=== PATIENT | female | born 1990 | race Caucasian/White ===

== ENCOUNTER 2021-11-16 09:56 | Inpatient (IN) | payer MEDICAID ==
[~2021-11-16] VITALS: Ht 162.6 cm; Wt 68.2 kg
[2021-11-16] MEDS ORDERED: SODIUM CHLORIDE 0.9% 1,000 ML IV ONE ×3 (11:00→14:00)
[2021-11-16 11:23] LABS: BASOPHILS % (AUTO) 0.1 % (0.0-2.0); HEMATOCRIT 42.5 % (36-46); HEMOGLOBIN 14.2 g/dL (12.0-16.0); LYMPHOCYTES # (AUTO) 0.7 K/uL (1.0-4.8); LYMPHOCYTES % (AUTO) 3.9 % (22.0-44.0); MEAN CORPUSCULAR HEMOGLOBIN 31.1 pg (26.0-34.0); MEAN CORPUSCULAR HGB CONC 33.5 G/dL (31.0-37.0); MEAN CORPUSCULAR VOLUME 93 fL (80-100); MONOCYTES # (AUTO) 2.5 K/uL (0.1-1.0); MONOCYTES % (AUTO) 14.5 % (2.0-9.0); NEUTROPHILS # (AUTO) 13.9 K/uL (1.8-7.7); NEUTROPHILS % (AUTO) 80.5 % (40.0-70.0); PLATELET COUNT (AUTO) 453 K/uL (150-450); RED BLOOD CELL COUNT(AUTO) 4.58 MIL/uL (4.00-5.20); RED CELL DISTRIBUTION WIDTH 13.4 % (11.5-14.5)
[2021-11-16 11:39] LABS: ANION GAP 8 mmol/L (8-16); CALCIUM, TOTAL 8.5 mg/dL (8.8-10.5); CARBON DIOXIDE 22 mmol/L (22-29); CHLORIDE 106 mmol/L (98-107); CREATININE 0.65 mg/dL (0.60-1.30); GLOMERULAR FILTR. RATE CALC > 60 mL/min (>60); GLUCOSE,RANDOM 86 mg/dL (70-110); POTASSIUM 4.1 mmol/L (3.5-5.1); SODIUM SERUM 136 mmol/L (136-145); UREA NITROGEN, BLOOD 22 mg/dL (7-18)
[2021-11-16 11:42] LABS: ALANINE AMINOTRANSFERASE 23 U/L (12-78); ALKALINE PHOSPHATASE 101 U/L (46-116); ASPARTATE AMINOTRANSFERASE 15 U/L (15-37); BILIRUBIN,TOTAL 0.5 mg/dL (0.1-1.0); LIPASE 36 U/L (73-393); TOTAL PROTEIN, SERUM 8.1 g/dL (6.4-8.2)
[2021-11-16] MEDS ORDERED: SODIUM CHLORIDE 0.9% 100 ML ONE (12:59)
[2021-11-16] MEDS ORDERED: IOHEXOL 350 MG/ML 100 ML VIAL ONE (12:59)
[2021-11-16] MEDS ORDERED: CefTRIAXone 1 GM/DEXTROSE 50 ML IV ONE (13:00)
[2021-11-16] MEDS ORDERED: MetroNIDAZOLE 250 MG TABLET PO ONE (13:00)
[2021-11-16] MEDS ORDERED: MORPHINE SULFATE 2 MG/ML SYRINGE IVP PRN (14:00)
[2021-11-16] MEDS ORDERED: ZOLPIDEM TARTRATE 5 MG TABLET PO PRN (14:00)
[2021-11-16] MEDS ORDERED: ACETAMINOPHEN 325 MG TABLET PO PRN (14:00)
[2021-11-16] MEDS ORDERED: MAGNESIUM HYDROXIDE SUSPENSION 30 ML UDCUP PO PRN (14:00)
[2021-11-16] MEDS ORDERED: ONDANSETRON HCL 4 MG/2 ML VIAL IVP PRN (14:00)
[2021-11-16] MEDS ORDERED: BISACODYL 10 MG RECTAL RECTAL SUPPOSITORY PR PRN (14:00)
[2021-11-16] MEDS ORDERED: HYDROCODONE/ACETAMINOPHEN 5-325 MG TABLET PO PRN (14:00)
[2021-11-16 14:21] LABS: COVID AG,FIA SOURCE NASAL SWAB
[2021-11-16] MEDS: HEPARIN SODIUM,PORCINE 5,000 UNITS/ML VIAL SQ SCH (16:00)
[2021-11-16 16:19] VITALS: BP 125/76
[2021-11-16] MEDS ORDERED: INFLUENZA VIRUS VACCINE QVS 2021-22 (6MO+)/PF 60 MCG/0.5 ML SYRINGE IM. ONE (16:30)
[2021-11-16] MEDS: DOCUSATE SODIUM 100 MG CAPSULE PO SCH (21:00)
[2021-11-17 05:37] VITALS: BP 120/70
[2021-11-17 06:47] LABS: HEMATOCRIT 36.9 % (36-46); HEMOGLOBIN 12.4 g/dL (12.0-16.0); MEAN CORPUSCULAR HEMOGLOBIN 31.6 pg (26.0-34.0); MEAN CORPUSCULAR HGB CONC 33.5 G/dL (31.0-37.0); MEAN CORPUSCULAR VOLUME 94 fL (80-100); PLATELET COUNT (AUTO) 420 K/uL (150-450); RED BLOOD CELL COUNT(AUTO) 3.91 MIL/uL (4.00-5.20); RED CELL DISTRIBUTION WIDTH 13.1 % (11.5-14.5)
[2021-11-17 06:52] LABS: ANION GAP 8 mmol/L (8-16); CALCIUM, TOTAL 8.3 mg/dL (8.8-10.5); CARBON DIOXIDE 26 mmol/L (22-29); CHLORIDE 107 mmol/L (98-107); CREATININE 0.64 mg/dL (0.60-1.30); GLOMERULAR FILTR. RATE CALC > 60 mL/min (>60); GLUCOSE,RANDOM 77 mg/dL (70-110); POTASSIUM 3.6 mmol/L (3.5-5.1); SODIUM SERUM 141 mmol/L (136-145); UREA NITROGEN, BLOOD 12 mg/dL (7-18)
[2021-11-17 07:57] VITALS: BP 112/71
[2021-11-17] MEDS: HEPARIN SODIUM,PORCINE 5,000 UNITS/ML VIAL SQ SCH ×2 (08:00)
[2021-11-17 08:16] LABS: BAND NEUTROPHILS % (MANUAL) 1 % (0-5); LYMPHOCYTES % (MANUAL) 25 % (22-44); MONOCYTES % (MANUAL) 13 % (2-9); SEGMENTED NEUTROPHILS % 61 % (40-70)
[2021-11-17] MEDS ORDERED: PANTOPRAZOLE SODIUM 40 MG DR TABLET PO SCH (09:00)
[2021-11-17] MEDS: DOCUSATE SODIUM 100 MG CAPSULE PO SCH (09:00)
[2021-11-17] MEDS ORDERED: BISA10SU11 PR (15:15)
[2021-11-17] MEDS ORDERED: DOCU-270 PO (15:15)
== END 2021-11-17 13:20 | disposition left against medical advice (07) | DRG 247 ==
LOC: EMS 10:01 → UNDOADMIN 13:32 → 3EI 13:32 → 6S 14:27 → 3EI 15:16 → 6N 11-17 06:00
PROVIDERS: ADMIT Internal Medicine; ATTEND Internal Medicine
DX: K56.7 Ileus, unspecified (principal); R65.10 Systemic inflammatory response syndrome (SIRS) of non-infectious origin without acute organ dysfunction; F29 Unspecified psychosis not due to a substance or known physiological condition; F12.10 Cannabis abuse, uncomplicated; Z20.822 Contact with and (suspected) exposure to COVID-19; Z53.29 Procedure and treatment not carried out because of patient's decision for other reasons; E86.0 Dehydration; R79.89 Other specified abnormal findings of blood chemistry; Z28.21 Immunization not carried out because of patient refusal
CPT/HCPCS: 74019; 74177; 80048; 80053; 83690; 84703; 85025; 99285; J0696; J1644; J7030; J7050; Q9967

== ENCOUNTER 2021-11-19 12:42 | Emergency (ER) | payer MEDICAID ==
[~2021-11-19] VITALS: Ht 162.6 cm; Wt 60.0 kg
[~2021-11-19 12:42] MED LIST: BISA10SU11 PR; DOCU-270 PO
[2021-11-19 13:21] LABS: BASOPHILS % (AUTO) 0.3 % (0.0-2.0); EOSINOPHILS % (AUTO) 3.9 % (1.0-6.0); HEMATOCRIT 35.1 % (36-46); LYMPHOCYTES # (AUTO) 1.6 K/uL (1.0-4.8); MEAN CORPUSCULAR HEMOGLOBIN 31.8 pg (26.0-34.0); MEAN CORPUSCULAR HGB CONC 34.2 G/dL (31.0-37.0); MEAN CORPUSCULAR VOLUME 93 fL (80-100); MONOCYTES # (AUTO) 1.5 K/uL (0.1-1.0); MONOCYTES % (AUTO) 18.8 % (2.0-9.0); NEUTROPHILS # (AUTO) 4.3 K/uL (1.8-7.7); PLATELET COUNT (AUTO) 411 K/uL (150-450); RED BLOOD CELL COUNT(AUTO) 3.78 MIL/uL (4.00-5.20); RED CELL DISTRIBUTION WIDTH 12.9 % (11.5-14.5)
[2021-11-19 13:44] LABS: ANION GAP 8 mmol/L (8-16); CARBON DIOXIDE 29 mmol/L (22-29); CHLORIDE 106 mmol/L (98-107); CREATININE 0.67 mg/dL (0.60-1.30); GLUCOSE,RANDOM 81 mg/dL (70-110); POTASSIUM 3.5 mmol/L (3.5-5.1); SODIUM SERUM 143 mmol/L (136-145); UREA NITROGEN, BLOOD 11 mg/dL (7-18)
[2021-11-19 13:45] LABS: CALCIUM, TOTAL 8.5 mg/dL (8.8-10.5); GLOMERULAR FILTR. RATE CALC > 60 mL/min (>60)
[2021-11-19 13:58] LABS: ALANINE AMINOTRANSFERASE 15 U/L (12-78); ALBUMIN 3.3 g/dL (3.4-5.0); ALKALINE PHOSPHATASE 88 U/L (46-116); ASPARTATE AMINOTRANSFERASE 13 U/L (15-37); BILIRUBIN,TOTAL 0.4 mg/dL (0.1-1.0); HCG,QUANTITATIVE < 1 mIU/mL (0-6); TOTAL PROTEIN, SERUM 6.7 g/dL (6.4-8.2)
[2021-11-19 15:27] VITALS: BP 125/71
== END 2021-11-19 16:00 | disposition home or self-care (01) ==
LOC: EMS 12:44
DX: T73.0XXA Starvation, initial encounter (principal); F41.9 Anxiety disorder, unspecified; F32.9 Major depressive disorder, single episode, unspecified; K21.9 Gastro-esophageal reflux disease without esophagitis; F12.90 Cannabis use, unspecified, uncomplicated; F19.90 Other psychoactive substance use, unspecified, uncomplicated; F17.210 Nicotine dependence, cigarettes, uncomplicated; Z59.00 Homelessness unspecified; X58.XXXA Exposure to other specified factors, initial encounter
CPT/HCPCS: 36415; 80053; 84702; 85025; 99285; G0480

== ENCOUNTER 2021-12-02 08:13 | Inpatient (IN) | payer MEDICAID ==
[~2021-12-02] VITALS: Ht 162.6 cm; Wt 67.1 kg
[~2021-12-02 08:13] MED LIST changes: -DOCU-270 PO; +DOCU-385 PO
[2021-12-02 09:39] LABS: HEMATOCRIT 36.8 % (36-46)
[2021-12-02 09:43] LABS: BASOPHILS % (AUTO) 0.6 % (0.0-2.0); EOSINOPHILS % (AUTO) 2.4 % (1.0-6.0); HEMOGLOBIN 12.4 g/dL (12.0-16.0); LYMPHOCYTES # (AUTO) 1.7 K/uL (1.0-4.8); LYMPHOCYTES % (AUTO) 24.6 % (22.0-44.0); MEAN CORPUSCULAR HEMOGLOBIN 31.5 pg (26.0-34.0); MEAN CORPUSCULAR HGB CONC 33.7 G/dL (31.0-37.0); MEAN CORPUSCULAR VOLUME 94 fL (80-100); MONOCYTES # (AUTO) 1.3 K/uL (0.1-1.0); MONOCYTES % (AUTO) 19.4 % (2.0-9.0); NEUTROPHILS # (AUTO) 3.7 K/uL (1.8-7.7); PLATELET COUNT (AUTO) 460 K/uL (150-450); RED BLOOD CELL COUNT(AUTO) 3.94 MIL/uL (4.00-5.20); RED CELL DISTRIBUTION WIDTH 13.3 % (11.5-14.5)
[2021-12-02 09:48] LABS: ANION GAP 6 mmol/L (8-16); CALCIUM, TOTAL 8.5 mg/dL (8.8-10.5); CARBON DIOXIDE 29 mmol/L (22-29); CHLORIDE 104 mmol/L (98-107); GLOMERULAR FILTR. RATE CALC > 60 mL/min (>60); GLUCOSE,RANDOM 81 mg/dL (70-110); POTASSIUM 3.5 mmol/L (3.5-5.1); SODIUM SERUM 139 mmol/L (136-145); UREA NITROGEN, BLOOD 17 mg/dL (7-18)
[2021-12-02 09:59] LABS: ALANINE AMINOTRANSFERASE 25 U/L (12-78); ALBUMIN 3.6 g/dL (3.4-5.0); ALKALINE PHOSPHATASE 101 U/L (46-116); ASPARTATE AMINOTRANSFERASE 17 U/L (15-37); BILIRUBIN,TOTAL 0.3 mg/dL (0.1-1.0); HCG,QUANTITATIVE < 1 mIU/mL (0-6); TOTAL PROTEIN, SERUM 6.9 g/dL (6.4-8.2)
[2021-12-02 10:25] LABS: COVID AG,FIA SOURCE NASAL SWAB
[2021-12-02 10:43] LABS: AMPHET/METH SCREEN,URINE POSITIVE (NEGATIVE); BARBITURATE SCREEN, URINE NEGATIVE (NEGATIVE); BENZODIAZEPINES SCREEN,URINE NEGATIVE (NEGATIVE); CANNABINOID SCREEN,URINE NEGATIVE (NEGATIVE); COCAINE SCREEN,URINE NEGATIVE (NEGATIVE); METHADONE SCREEN, URINE NEGATIVE (NEGATIVE); OPIATE SCREEN,URINE NEGATIVE (NEGATIVE)
[2021-12-02 10:47] LABS: PHENCYCLIDINE SCREEN,URINE NEGATIVE (NEGATIVE)
[2021-12-02] MEDS ORDERED: NICOTINE 14 MG/24 HOUR PATCH TD PRN (13:45)
[2021-12-02] MEDS ORDERED: DOCUSATE SODIUM 100 MG CAPSULE PO PRN (13:45)
[2021-12-02] MEDS ORDERED: CloNIDine HCL 0.1 MG TABLET PO PRN (13:45)
[2021-12-02] MEDS ORDERED: PETROLATUM,WHITE 28 GM JELLY TP PRN (13:45)
[2021-12-02] MEDS ORDERED: ONDANSETRON HCL 4 MG TABLET PO PRN (13:45)
[2021-12-02] MEDS ORDERED: ACETAMINOPHEN 325 MG TABLET PO PRN (13:45)
[2021-12-02] MEDS ORDERED: ALBUTEROL SULFATE HFA 90 MCG/PUFF 8 GM INHALER IH PRN (13:45)
[2021-12-02] MEDS ORDERED: LOPERAMIDE HCL 2 MG CAPSULE PO PRN (13:45)
[2021-12-02] MEDS ORDERED: MAGNESIUM HYDROXIDE SUSPENSION 30 ML UDCUP PO PRN (13:45)
[2021-12-02] MEDS ORDERED: MAG HYDROX/AL HYDROX/SIMETH ES 30 ML SUSPENSION UDCUP PO PRN (13:45)
[2021-12-02] MEDS ORDERED: GuaiFENesin/D-METHORPHAN [SUGAR-FREE] 200-20MG/10 ML SYRUP UDCUP PO PRN (13:45)
[2021-12-02] MEDS ORDERED: IBUPROFEN 400 MG TABLET PO PRN (13:45)
[2021-12-02] MEDS: DOCUSATE SODIUM 100 MG CAPSULE PO SCH (16:55)
[2021-12-02] MEDS: OMEPRAZOLE 20 MG CAPSULE PO SCH (19:03)
[2021-12-02] MEDS: NICOTINE 14 MG/24 HOUR PATCH TD SCH (19:04)
[2021-12-02] MEDS: ZOLPIDEM TARTRATE 10 MG TABLET PO PRN (22:50)
[2021-12-03] MEDS: LORazepam 2 MG TABLET PO PRN (00:32)
[2021-12-03 01:02] VITALS: BP 125/81
[2021-12-03 08:00] VITALS: BP 121/88
[2021-12-03] MEDS: OMEPRAZOLE 20 MG CAPSULE PO SCH (08:18)
[2021-12-03] MEDS: DOCUSATE SODIUM 100 MG CAPSULE PO SCH ×2 (08:18→16:23)
[2021-12-03] MEDS: NICOTINE 14 MG/24 HOUR PATCH TD SCH (08:18)
[2021-12-03] MEDS: RisperiDONE 0.5 MG TABLET PO SCH (16:23)
[2021-12-03] MEDS: ZOLPIDEM TARTRATE 10 MG TABLET PO PRN (21:49)
[2021-12-04] MEDS: LORazepam 2 MG TABLET PO PRN ×2 (01:40→16:11)
[2021-12-04 01:41] VITALS: BP 105/60
[2021-12-04 08:21] VITALS: BP 107/78
[2021-12-04] MEDS: OMEPRAZOLE 20 MG CAPSULE PO SCH (09:00)
[2021-12-04] MEDS: RisperiDONE 0.5 MG TABLET PO SCH ×2 (09:00→16:35)
[2021-12-04] MEDS: DOCUSATE SODIUM 100 MG CAPSULE PO SCH ×2 (09:00→16:35)
[2021-12-04] MEDS: NICOTINE 14 MG/24 HOUR PATCH TD SCH (09:00)
[2021-12-04 16:21] VITALS: BP 119/78
[2021-12-04] MEDS: HALOPERIDOL 5 MG TABLET PO PRN (18:55)
[2021-12-04] MEDS: ZOLPIDEM TARTRATE 10 MG TABLET PO PRN (21:31)
[2021-12-05] MEDS: LORazepam 2 MG TABLET PO PRN ×3 (00:09→16:57)
[2021-12-05 01:10] VITALS: BP 114/78
[2021-12-05] MEDS: DOCUSATE SODIUM 100 MG CAPSULE PO SCH ×2 (08:39→16:17)
[2021-12-05] MEDS: NICOTINE 14 MG/24 HOUR PATCH TD SCH (08:40)
[2021-12-05] MEDS: OMEPRAZOLE 20 MG CAPSULE PO SCH (08:40)
[2021-12-05] MEDS: RisperiDONE 0.5 MG TABLET PO SCH ×2 (08:41→16:17)
[2021-12-05 08:47] VITALS: BP 110/68
[2021-12-05 16:07] VITALS: BP 112/70
[2021-12-06 00:36] VITALS: BP 114/69
[2021-12-06] MEDS: ZOLPIDEM TARTRATE 10 MG TABLET PO PRN ×2 (02:07→20:39)
[2021-12-06] MEDS: HALOPERIDOL 5 MG TABLET PO PRN (03:02)
[2021-12-06] MEDS: LORazepam 2 MG TABLET PO PRN ×2 (03:02→14:54)
[2021-12-06 08:48] VITALS: BP 112/69
[2021-12-06] MEDS: RisperiDONE 0.5 MG TABLET PO SCH ×2 (09:03→16:05)
[2021-12-06] MEDS: OMEPRAZOLE 20 MG CAPSULE PO SCH (09:03)
[2021-12-06] MEDS: NICOTINE 14 MG/24 HOUR PATCH TD SCH (09:03)
[2021-12-06] MEDS: DOCUSATE SODIUM 100 MG CAPSULE PO SCH ×2 (09:03→16:05)
[2021-12-06 16:04] VITALS: BP 108/97
[2021-12-07 00:07] VITALS: BP 107/69
[2021-12-07 02:13] VITALS: BP 110/70
[2021-12-07] MEDS: LORazepam 2 MG TABLET PO PRN ×3 (02:19→17:53)
[2021-12-07] MEDS: HALOPERIDOL 5 MG TABLET PO PRN (02:19)
[2021-12-07] MEDS: RisperiDONE 0.5 MG TABLET PO SCH ×2 (08:11→16:19)
[2021-12-07] MEDS: DOCUSATE SODIUM 100 MG CAPSULE PO SCH ×2 (08:11→16:19)
[2021-12-07] MEDS: OMEPRAZOLE 20 MG CAPSULE PO SCH (08:11)
[2021-12-07] MEDS: NICOTINE 14 MG/24 HOUR PATCH TD SCH (08:11)
[2021-12-07 08:13] VITALS: BP 116/72
[2021-12-07 08:16] LABS: GLUCOMETER DEV NAME(LOC) POC.BV
[2021-12-07] MEDS: ZOLPIDEM TARTRATE 10 MG TABLET PO PRN (21:17)
[2021-12-08 03:26] VITALS: BP 115/69
[2021-12-08] MEDS: HALOPERIDOL 5 MG TABLET PO PRN (03:35)
[2021-12-08] MEDS: LORazepam 2 MG TABLET PO PRN ×3 (03:35→22:56)
[2021-12-08 08:09] VITALS: BP 112/69
[2021-12-08] MEDS: RisperiDONE 0.5 MG TABLET PO SCH ×2 (08:25→16:06)
[2021-12-08] MEDS: OMEPRAZOLE 20 MG CAPSULE PO SCH (08:25)
[2021-12-08] MEDS: NICOTINE 14 MG/24 HOUR PATCH TD SCH (08:25)
[2021-12-08] MEDS: DOCUSATE SODIUM 100 MG CAPSULE PO SCH ×2 (08:25→16:06)
[2021-12-08 16:26] VITALS: BP 115/75
[2021-12-08] MEDS: ZOLPIDEM TARTRATE 10 MG TABLET PO PRN (20:06)
[2021-12-09 06:10] VITALS: BP 109/71
[2021-12-09] MEDS: LORazepam 2 MG TABLET PO PRN ×2 (07:59→16:23)
[2021-12-09] MEDS: DOCUSATE SODIUM 100 MG CAPSULE PO SCH ×2 (07:59→16:23)
[2021-12-09] MEDS: RisperiDONE 0.5 MG TABLET PO SCH ×2 (07:59→16:23)
[2021-12-09] MEDS: NICOTINE 14 MG/24 HOUR PATCH TD SCH (07:59)
[2021-12-09] MEDS: OMEPRAZOLE 20 MG CAPSULE PO SCH (07:59)
[2021-12-09 08:45] VITALS: BP 104/72
[2021-12-09 12:39] VITALS: BP 110/70
[2021-12-09] MEDS: TraMADol HCL 50 MG TABLET PO PRN (12:39)
[2021-12-09] MEDS: HALOPERIDOL 5 MG TABLET PO PRN (14:00)
[2021-12-09 16:30] VITALS: BP 111/76
[2021-12-09 17:17] VITALS: BP 114/68
[2021-12-09] MEDS: ZOLPIDEM TARTRATE 10 MG TABLET PO PRN (22:40)
[2021-12-10 00:26] VITALS: BP 109/66
[2021-12-10 02:10] VITALS: BP 115/76
[2021-12-10] MEDS: OMEPRAZOLE 20 MG CAPSULE PO SCH (08:07)
[2021-12-10] MEDS: RisperiDONE 0.5 MG TABLET PO SCH ×2 (08:07→16:13)
[2021-12-10] MEDS: DOCUSATE SODIUM 100 MG CAPSULE PO SCH ×2 (08:07→16:13)
[2021-12-10 08:20] VITALS: BP 114/70
[2021-12-10] MEDS ORDERED: DiphenhydrAMINE HCL 50 MG/ML VIAL ONE (10:29)
[2021-12-10] MEDS ORDERED: LORazepam 2 MG/ML VIAL ONE (10:29)
[2021-12-10] MEDS ORDERED: HALOPERIDOL LACTATE 5 MG/ML VIAL ONE (10:29)
[2021-12-10] MEDS ORDERED: LORazepam 2 MG/ML VIAL IM ONE (10:30)
[2021-12-10] MEDS ORDERED: DiphenhydrAMINE HCL 50 MG/ML VIAL IM ONE (10:30)
[2021-12-10] MEDS ORDERED: HALOPERIDOL LACTATE 5 MG/ML VIAL IM ONE (10:30)
[2021-12-10] MEDS: NICOTINE 14 MG/24 HOUR PATCH TD SCH (10:43)
[2021-12-10] MEDS: HALOPERIDOL 5 MG TABLET PO PRN (16:19)
[2021-12-10 16:25] VITALS: BP 106/70
[2021-12-10] MEDS: LORazepam 2 MG TABLET PO PRN (21:11)
[2021-12-11 07:05] VITALS: BP 105/68
[2021-12-11] MEDS: RisperiDONE 0.5 MG TABLET PO SCH ×2 (08:24→17:02)
[2021-12-11] MEDS: LORazepam 2 MG TABLET PO PRN ×2 (08:24→12:28)
[2021-12-11] MEDS: DOCUSATE SODIUM 100 MG CAPSULE PO SCH ×4 (08:24→17:26)
[2021-12-11] MEDS: OMEPRAZOLE 20 MG CAPSULE PO SCH ×2 (08:24→17:34)
[2021-12-11] MEDS: NICOTINE 14 MG/24 HOUR PATCH TD SCH (08:25)
[2021-12-11] MEDS: TraMADol HCL 50 MG TABLET PO PRN (12:28)
[2021-12-11] MEDS: HALOPERIDOL 5 MG TABLET PO PRN (12:28)
[2021-12-11 17:02] VITALS: BP 114/80
[2021-12-11] MEDS: ZOLPIDEM TARTRATE 10 MG TABLET PO PRN (22:34)
[2021-12-12 01:23] VITALS: BP 109/62
[2021-12-12 07:20] LABS: FREE T4 (FREE THYROXINE) 0.82 ng/dL (0.76-1.46); THYROID STIMULATING HORMONE 2.98 uIU/mL (0.36-3.74)
[2021-12-12 08:09] VITALS: BP 118/72
[2021-12-12] MEDS: LORazepam 2 MG TABLET PO PRN ×3 (08:13→23:28)
[2021-12-12] MEDS: NICOTINE 14 MG/24 HOUR PATCH TD SCH (08:13)
[2021-12-12] MEDS: RisperiDONE 0.5 MG TABLET PO SCH ×2 (08:13→16:43)
[2021-12-12] MEDS ORDERED: LORazepam 2 MG/ML VIAL ONE (11:01)
[2021-12-12] MEDS ORDERED: HALOPERIDOL LACTATE 5 MG/ML VIAL ONE (11:02)
[2021-12-12] MEDS ORDERED: DiphenhydrAMINE HCL 50 MG/ML VIAL ONE (11:03)
[2021-12-12] MEDS ORDERED: DiphenhydrAMINE HCL 50 MG/ML VIAL IM ONE (11:30)
[2021-12-12] MEDS ORDERED: LORazepam 2 MG/ML VIAL IM ONE (11:30)
[2021-12-12] MEDS ORDERED: HALOPERIDOL LACTATE 5 MG/ML VIAL IM ONE (11:30)
[2021-12-12] MEDS: DOCUSATE SODIUM 100 MG CAPSULE PO SCH (16:43)
[2021-12-12 17:45] VITALS: BP 99/63
[2021-12-12] MEDS: ZOLPIDEM TARTRATE 10 MG TABLET PO PRN (23:28)
[2021-12-13 06:35] VITALS: BP 105/98
[2021-12-13 08:10] LABS: CHOL/HDL RATIO 3.4 (3.9-5.7)
[2021-12-13 08:11] VITALS: BP 110/72
[2021-12-13] MEDS: NICOTINE 14 MG/24 HOUR PATCH TD SCH (08:14)
[2021-12-13] MEDS: DOCUSATE SODIUM 100 MG CAPSULE PO SCH ×2 (08:15→16:20)
[2021-12-13] MEDS: RisperiDONE 0.5 MG TABLET PO SCH ×2 (08:15→16:20)
[2021-12-13] MEDS: LORazepam 2 MG TABLET PO PRN ×2 (08:15→16:20)
[2021-12-13] MEDS: OMEPRAZOLE 20 MG CAPSULE PO SCH (08:15)
[2021-12-13] MEDS: TraMADol HCL 50 MG TABLET PO PRN (08:16)
[2021-12-13] MEDS: HALOPERIDOL 5 MG TABLET PO PRN (12:14)
[2021-12-13 16:16] VITALS: BP 105/65
[2021-12-13] MEDS: ZOLPIDEM TARTRATE 10 MG TABLET PO PRN (20:23)
[2021-12-14 08:11] LABS: GLUCOMETER DEV NAME(LOC) POC.BV
[2021-12-14 08:14] VITALS: BP 128/67
[2021-12-14] MEDS: OMEPRAZOLE 20 MG CAPSULE PO SCH (08:29)
[2021-12-14] MEDS: RisperiDONE 0.5 MG TABLET PO SCH (08:29)
[2021-12-14] MEDS: DOCUSATE SODIUM 100 MG CAPSULE PO SCH ×2 (08:29→16:00)
[2021-12-14] MEDS: LORazepam 2 MG TABLET PO PRN ×3 (08:30→20:44)
[2021-12-14] MEDS: NICOTINE POLACRILEX 2 MG LOZENGE PO PRN ×2 (08:35→17:12)
[2021-12-14] MEDS: HALOPERIDOL 5 MG TABLET PO PRN ×2 (09:22→14:28)
[2021-12-14] MEDS: RisperiDONE 1 MG TABLET PO SCH (16:00)
[2021-12-14 16:15] VITALS: BP 106/65
[2021-12-14] MEDS: ZOLPIDEM TARTRATE 10 MG TABLET PO PRN (20:44)
[2021-12-15 06:36] VITALS: BP 107/69
[2021-12-15 08:15] VITALS: BP 107/65
[2021-12-15] MEDS: OMEPRAZOLE 20 MG CAPSULE PO SCH (08:21)
[2021-12-15] MEDS: DOCUSATE SODIUM 100 MG CAPSULE PO SCH ×2 (08:23→17:17)
[2021-12-15] MEDS: LORazepam 2 MG TABLET PO PRN (08:24)
[2021-12-15] MEDS: RisperiDONE 1 MG TABLET PO SCH ×2 (08:24→17:17)
[2021-12-15] MEDS: NICOTINE POLACRILEX 2 MG LOZENGE PO PRN (08:37)
[2021-12-15] MEDS: HALOPERIDOL 5 MG TABLET PO PRN (13:42)
[2021-12-15] MEDS ORDERED: HALOPERIDOL LACTATE 5 MG/ML VIAL IM ONE (15:30)
[2021-12-15] MEDS ORDERED: LORazepam 2 MG/ML VIAL IM ONE (15:30)
[2021-12-15] MEDS ORDERED: DiphenhydrAMINE HCL 50 MG/ML VIAL IM ONE (15:30)
[2021-12-15 16:09] VITALS: BP 106/60
[2021-12-15] MEDS: ZOLPIDEM TARTRATE 10 MG TABLET PO PRN (21:53)
[2021-12-16 05:49] VITALS: BP 106/65
[2021-12-16] MEDS: OMEPRAZOLE 20 MG CAPSULE PO SCH (08:40)
[2021-12-16] MEDS: RisperiDONE 1 MG TABLET PO SCH ×2 (08:40→16:01)
[2021-12-16] MEDS: HALOPERIDOL 5 MG TABLET PO PRN ×2 (08:40→14:34)
[2021-12-16] MEDS: LORazepam 2 MG TABLET PO PRN ×2 (08:40→14:33)
[2021-12-16] MEDS: NICOTINE POLACRILEX 2 MG LOZENGE PO PRN (08:50)
[2021-12-16] MEDS: DOCUSATE SODIUM 100 MG CAPSULE PO SCH ×2 (09:00→16:01)
[2021-12-16 16:07] VITALS: BP 106/74
[2021-12-17 00:24] VITALS: BP 110/64
[2021-12-17] MEDS: NICOTINE POLACRILEX 2 MG LOZENGE PO PRN (06:26)
[2021-12-17] MEDS: RisperiDONE 1 MG TABLET PO SCH ×2 (08:36→16:16)
[2021-12-17] MEDS: LORazepam 2 MG TABLET PO PRN ×2 (08:37→13:21)
[2021-12-17] MEDS: DOCUSATE SODIUM 100 MG CAPSULE PO SCH ×2 (08:37→16:16)
[2021-12-17] MEDS: OMEPRAZOLE 20 MG CAPSULE PO SCH (08:37)
[2021-12-17 09:02] VITALS: BP 104/70
[2021-12-17] MEDS: NICOTINE 14 MG/24 HOUR PATCH TD SCH (12:50)
[2021-12-17] MEDS: HALOPERIDOL 5 MG TABLET PO PRN (12:50)
[2021-12-17 17:15] VITALS: BP 121/75
[2021-12-17] MEDS: ZOLPIDEM TARTRATE 10 MG TABLET PO PRN (21:59)
[2021-12-18 06:03] VITALS: BP 116/72
[2021-12-18] MEDS: NICOTINE 14 MG/24 HOUR PATCH TD SCH (08:18)
[2021-12-18] MEDS: OMEPRAZOLE 20 MG CAPSULE PO SCH (08:18)
[2021-12-18] MEDS: RisperiDONE 1 MG TABLET PO SCH (08:18)
[2021-12-18] MEDS: DOCUSATE SODIUM 100 MG CAPSULE PO SCH (08:19)
[2021-12-18 08:28] VITALS: BP 120/74
[2021-12-18] MEDS ORDERED: RISP1TAB98 PO (09:05)
[2021-12-18] MEDS ORDERED: RISP1TAB48 PO (09:10)
== END 2021-12-18 14:45 | disposition home or self-care (01) | DRG 751 ==
LOC: EMS 08:17 → B2S 11:23 → B3A 12-07 22:42
PROVIDERS: ADMIT Psychiatry & Neurology Child & Adolescent Psychiatry; ATTEND Psychiatry & Neurology Child & Adolescent Psychiatry
DX: F33.3 Major depressive disorder, recurrent, severe with psychotic symptoms (principal); R45.851 Suicidal ideations; D75.839 Thrombocytosis, unspecified; F10.10 Alcohol abuse, uncomplicated; F15.10 Other stimulant abuse, uncomplicated; F17.200 Nicotine dependence, unspecified, uncomplicated; F41.0 Panic disorder [episodic paroxysmal anxiety]; K21.9 Gastro-esophageal reflux disease without esophagitis; F41.9 Anxiety disorder, unspecified; Y90.9 Presence of alcohol in blood, level not specified; F12.10 Cannabis abuse, uncomplicated; Z20.822 Contact with and (suspected) exposure to COVID-19; Z71.41 Alcohol abuse counseling and surveillance of alcoholic; Z59.00 Homelessness unspecified; Z71.51 Drug abuse counseling and surveillance of drug abuser
CPT/HCPCS: 72040; 80053; 80061; 84439; 84443; 84702; 85025; 87081; 99285; G0480; J1200; J1630; J2060; Q0162; Q9967

== ENCOUNTER 2021-12-23 14:57 | Inpatient (IN) | payer MEDICAID ==
[~2021-12-23] VITALS: Ht 162.6 cm; Wt 68.0 kg
[~2021-12-23 14:57] MED LIST changes: -BISA10SU11 PR; -DOCU-385 PO; +RISP1TAB48 PO; +RISP1TAB98 PO
[2021-12-23] MEDS ORDERED: NICOTINE 7 MG/24 HOUR PATCH TD ONE (16:00)
[2021-12-23 16:14] LABS: BASOPHILS % (AUTO) 0.5 % (0.0-2.0); EOSINOPHILS % (AUTO) 3.2 % (1.0-6.0); HEMATOCRIT 33.4 % (36-46); HEMOGLOBIN 11.1 g/dL (12.0-16.0); LYMPHOCYTES # (AUTO) 1.1 K/uL (1.0-4.8); LYMPHOCYTES % (AUTO) 9.3 % (22.0-44.0); MEAN CORPUSCULAR HEMOGLOBIN 31.6 pg (26.0-34.0); MEAN CORPUSCULAR HGB CONC 33.3 G/dL (31.0-37.0); MEAN CORPUSCULAR VOLUME 95 fL (80-100); MONOCYTES # (AUTO) 1.8 K/uL (0.1-1.0); MONOCYTES % (AUTO) 15.2 % (2.0-9.0); NEUTROPHILS # (AUTO) 8.5 K/uL (1.8-7.7); NEUTROPHILS % (AUTO) 71.8 % (40.0-70.0); PLATELET COUNT (AUTO) 403 K/uL (150-450); RED BLOOD CELL COUNT(AUTO) 3.52 MIL/uL (4.00-5.20); RED CELL DISTRIBUTION WIDTH 13.6 % (11.5-14.5)
[2021-12-23 16:22] LABS: ANION GAP 4 mmol/L (8-16); CALCIUM, TOTAL 8.5 mg/dL (8.8-10.5); CARBON DIOXIDE 30 mmol/L (22-29); CHLORIDE 107 mmol/L (98-107); GLOMERULAR FILTR. RATE CALC > 60 mL/min (>60); GLUCOSE,RANDOM 84 mg/dL (70-110); SODIUM SERUM 141 mmol/L (136-145); UREA NITROGEN, BLOOD 14 mg/dL (7-18)
[2021-12-23 16:44] LABS: ALANINE AMINOTRANSFERASE 30 U/L (12-78); ALBUMIN 3.5 g/dL (3.4-5.0); ALKALINE PHOSPHATASE 84 U/L (46-116); ASPARTATE AMINOTRANSFERASE 17 U/L (15-37); BILIRUBIN,TOTAL 0.2 mg/dL (0.1-1.0); HCG,QUANTITATIVE < 1 mIU/mL (0-6); TOTAL PROTEIN, SERUM 6.8 g/dL (6.4-8.2)
[2021-12-23] MEDS ORDERED: ZOLPIDEM TARTRATE 10 MG TABLET PO PRN (18:15)
[2021-12-23 19:02] LABS: COVID AG,FIA SOURCE NASOPHARYNGEAL
[2021-12-23] MEDS ORDERED: ALBU8HFA IH (19:14)
[2021-12-23] MEDS ORDERED: OMEP10 PO (19:14)
[2021-12-23] MEDS ORDERED: MONT-35 PO (19:14)
[2021-12-23 19:19] LABS: AMPHET/METH SCREEN,URINE NEGATIVE (NEGATIVE); BARBITURATE SCREEN, URINE NEGATIVE (NEGATIVE); BENZODIAZEPINES SCREEN,URINE NEGATIVE (NEGATIVE); CANNABINOID SCREEN,URINE NEGATIVE (NEGATIVE); COCAINE SCREEN,URINE NEGATIVE (NEGATIVE); METHADONE SCREEN, URINE NEGATIVE (NEGATIVE); OPIATE SCREEN,URINE NEGATIVE (NEGATIVE); PHENCYCLIDINE SCREEN,URINE NEGATIVE (NEGATIVE)
[2021-12-23] MEDS ORDERED: RISP2TAB45 PO (19:26)
[2021-12-24] MEDS: LORazepam 2 MG TABLET PO PRN ×3 (03:37→20:20)
[2021-12-24] MEDS: HALOPERIDOL 5 MG TABLET PO PRN (10:55)
[2021-12-24] MEDS: MONTELUKAST SODIUM 10 MG TABLET PO SCH (17:07)
[2021-12-25] MEDS: LORazepam 2 MG TABLET PO PRN ×2 (05:34→14:24)
[2021-12-25] MEDS: HALOPERIDOL 5 MG TABLET PO PRN (08:03)
[2021-12-25] MEDS: MONTELUKAST SODIUM 10 MG TABLET PO SCH ×2 (08:03→16:57)
[2021-12-25] MEDS: NICOTINE 21 MG/24 HOUR PATCH TD SCH (08:03)
[2021-12-25 08:30] VITALS: BP 104/60
[2021-12-25] MEDS: SERTRALINE HCL 50 MG TABLET PO SCH (11:07)
[2021-12-25] MEDS: RisperiDONE 2 MG TABLET PO SCH ×2 (11:07→20:40)
[2021-12-25 16:18] VITALS: BP 116/65
[2021-12-25] MEDS: ALBUTEROL SULFATE HFA 90 MCG/PUFF 8 GM INHALER IH PRN (17:37)
[2021-12-26 00:36] VITALS: BP 119/68
[2021-12-26] MEDS: LORazepam 2 MG TABLET PO PRN ×3 (04:47→15:45)
[2021-12-26 08:09] VITALS: BP 108/66
[2021-12-26] MEDS: MONTELUKAST SODIUM 10 MG TABLET PO SCH ×2 (08:52→16:46)
[2021-12-26] MEDS: NICOTINE 21 MG/24 HOUR PATCH TD SCH (08:52)
[2021-12-26] MEDS: SERTRALINE HCL 50 MG TABLET PO SCH (08:52)
[2021-12-26] MEDS: RisperiDONE 2 MG TABLET PO SCH ×2 (08:52→20:28)
[2021-12-26] MEDS: HALOPERIDOL 5 MG TABLET PO PRN ×2 (10:51→15:45)
[2021-12-26 16:20] VITALS: BP 106/74
[2021-12-27 00:19] VITALS: BP 106/66
[2021-12-27] MEDS: LORazepam 2 MG TABLET PO PRN (06:45)
[2021-12-27 08:16] VITALS: BP 108/64
[2021-12-27] MEDS: MONTELUKAST SODIUM 10 MG TABLET PO SCH (09:16)
[2021-12-27] MEDS: RisperiDONE 2 MG TABLET PO SCH (09:17)
[2021-12-27] MEDS: NICOTINE 21 MG/24 HOUR PATCH TD SCH (09:17)
[2021-12-27] MEDS: SERTRALINE HCL 50 MG TABLET PO SCH (09:17)
[2021-12-27] MEDS: ALBUTEROL SULFATE HFA 90 MCG/PUFF 8 GM INHALER IH PRN ×2 (09:50→12:11)
[2021-12-27] MEDS ORDERED: SERT-158 PO ×2 (10:55→11:29)
[2021-12-27] MEDS ORDERED: RISP2TAB45 PO (11:29)
== END 2021-12-27 13:50 | disposition home or self-care (01) | DRG 750 ==
LOC: EMS 14:57 → B2S 12-24 13:01
PROVIDERS: ADMIT Psychiatry & Neurology Psychiatry; ATTEND Psychiatry & Neurology Child & Adolescent Psychiatry
DX: F25.1 Schizoaffective disorder, depressive type (principal); Z59.00 Homelessness unspecified; D72.829 Elevated white blood cell count, unspecified; D75.839 Thrombocytosis, unspecified; K21.9 Gastro-esophageal reflux disease without esophagitis; F17.200 Nicotine dependence, unspecified, uncomplicated; F12.90 Cannabis use, unspecified, uncomplicated; F10.10 Alcohol abuse, uncomplicated; Y90.0 Blood alcohol level of less than 20 mg/100 ml; F32.9 Major depressive disorder, single episode, unspecified; F41.1 Generalized anxiety disorder; J45.909 Unspecified asthma, uncomplicated; Z20.822 Contact with and (suspected) exposure to COVID-19; F19.10 Other psychoactive substance abuse, uncomplicated; Z71.6 Tobacco abuse counseling; Z71.41 Alcohol abuse counseling and surveillance of alcoholic; Z63.8 Other specified problems related to primary support group; Z87.820 Personal history of traumatic brain injury; Z91.51 Personal history of suicidal behavior
CPT/HCPCS: 80053; 84702; 85025; 87081; 99285; G0480; J3535